=== PATIENT | male | born 2000 | race Asian ===

== ENCOUNTER 2023-02-03 03:59 | Day surgery (SDC) | payer BC ==
[2023-02-01 17:36] VITALS: BMI 27.8
[2023-02-03] MEDS ORDERED: PROPOFOL 20 ML ONE (11:57)
[2023-02-03] MEDS ORDERED: DEXAMETHASONE SOD PHOSPHATE 4 MG/1 ML VIAL ONE (11:58)
[2023-02-03] MEDS ORDERED: MIDAZOLAM HCL 2 MG/2 ML SINGLE DOSE VIAL ONE (11:58)
[2023-02-03] MEDS ORDERED: SUCCINYLCHOLINE CHLORIDE 200 MG/10 ML SYRINGE ONE (11:58)
[2023-02-03] MEDS ORDERED: ONDANSETRON 4 MG/2 ML VIAL ONE (11:58)
[2023-02-03] MEDS ORDERED: LIDOCAINE HCL/PF 2% SDV 5ML VIAL ONE (11:58)
[2023-02-03] MEDS ORDERED: ceFAZolin SODIUM 1 GM VIAL ONE (11:58)
[2023-02-03] MEDS ORDERED: ACETAMINOPHEN INJECTION 100 ML IVPB ONE (12:02)
[2023-02-03] MEDS ORDERED: ceFAZolin SODIUM 1 GM VIAL IVPB ONE (12:15)
[2023-02-03] MEDS ORDERED: LIDOCAINE 2%/EPINEPHRINE 1:100000 (50 ML MD VIAL) PNB ONE ×2 (12:47)
[2023-02-03] MEDS ORDERED: OXYMETAZOLINE 0.05% NASAL SOLUTION 15 ML BOTTLE NS ONE (12:47)
[2023-02-03] MEDS ORDERED: ONDANSETRON 4 MG/2 ML VIAL IVPUSH PRN (13:20)
[2023-02-03] MEDS ORDERED: oxyCODONE HCL 5 MG TABLET PO PRN (13:20)
[2023-02-03] MEDS ORDERED: LACTATED RINGERS SOLUTION 1,000 ML IV SCH (13:30)
[2023-02-03] MEDS ORDERED: oxyCODONE HCL 5 MG TABLET ONE (14:31)
[2023-02-03 14:40] VITALS: RESP 18; TEMP 98.2
[2023-02-03 15:44] VITALS: BP 122/83; PULSE 68
== END 2023-02-03 15:20 | disposition home or self-care (01) ==
LOC: JASU-SURG 03:59
PROVIDERS: ATTEND Otolaryngology
PROC: 09TL8ZZ Resection of Nasal Turbinate, Via Natural or Artificial Opening Endoscopic (ICD-10-PCS; 2023-02-03)
PROC: 0CTPXZZ Resection of Tonsils, External Approach (ICD-10-PCS; principal; 2023-02-03 12:30)
PROC: 0CTQXZZ Resection of Adenoids, External Approach (ICD-10-PCS; 2023-02-03 12:30)
DX: J35.3 Hypertrophy of tonsils with hypertrophy of adenoids (principal); J34.3 Hypertrophy of nasal turbinates; G47.33 Obstructive sleep apnea (adult) (pediatric)
CPT/HCPCS: 94760